=== PATIENT | male | born 1985 | race Two or more races ===

== ENCOUNTER 2023-03-07 20:51 | Outpatient (CLI) | payer MEDICAID, SELFPAY ==
--- OUTSIDE RECORDS SUMMARY | 2023-03-07 20:56 | XMS_ITS | Clinical Summary ---
Author Name Unknown Organization [facility] Address [address] [place] [id number] Care Team Providers Care Forensic Materials Engineer Name Role Phone Clinic - [facility] Ca re Provider Fannie Cash PA-C Unavailable [phone] Allergies No known active allergies Medications Medication Sig Dispensed Refills Start Date End Date Status albuterol (PROVENTIL) (2.5 MG/3ML) 0.083% neb solution Every 6 Hours as needed 0 Active albuterol (PROAIR HFA/PROVENTIL HFA/VENTOLIN HFA) 108 (90 Base) MCG/ACT inhaler Every 4 Hours as needed 0 Active acetaminophen (TYLENOL) 500 MG tablet Every 6 Hours as needed 0 Active ibuprofen (ADVIL/MOTRIN) 200 MG tablet Every 6 Hours as needed 0 Active Active Problems Problem Noted Date Diagnosed Date Mild intermittent asthma 01/26/2021 Resolved Problems Problem Noted Date Diagnosed Date Resolved Date COVID-19 01/26/2021 02/10/2021 Social History Tobacco Use Types Packs/Day Years Used Date Smoking Tobacco: Never Smokeless Tobacco: Never Alcohol Use Standard Drinks/Week Comments Yes 0 (1 standard drink = 0.6 oz pur e alcohol) socially PHQ-2 Answer Date Recorded PHQ-2 Score 0 01/26/2021 Adolescent Education Answer Date Record ed Getting School Help Needed Not on file 11/13 Sex and Gender Information Value Date Recorded Sex Assigned at Not on file Gender Identity Not on file Sexual Orientation Not on file Last Filed Vital Signs Vital Sign Reading Time Taken Comments Blood Pressure 106/64 02/10/2021 10:11 AM PEDIATRIC UROLOGIST Pulse 94 02/10/2021 10:11 AM PEDIATRIC UROLOGIST Temperature 36.9 ??C (98.4 ??F) 02/10/2021 10:[address] Respiratory Rate 18 02/10/2021 10:11 AM PEDIATRIC UROLOGIST Oxygen Saturation 96% 02/10/2021 10:11 AM PEDIATRIC UROLOGIST Inhaled Oxygen Concentration - - Weight 109.1 kg (240 lb 8 oz) 02/10/2021 10:11 A M PEDIATRIC UROLOGIST Height 177.8 cm (5' 10) 01/26/2021 5:22 PM PEDIATRIC UROLOGIST Body Mass Index 34.51 01/26/2021 5:22 PM PEDIATRIC UROLOGIST Plan of Treatment Health Maintenance Due Date Last Done Comments ADVANCE CARE PLANNING 1987 ANNUAL REVIEW OF HM ORDERS 1987 ASTHMA ACTION PLAN 1987 ASTHMA CONTROL TEST 1987 HEPATITIS B IMMUNIZATION (1 of 3 - 3-dose series) 1987 YEARLY PREVENTIVE VISIT 1987 COVID-19 Vaccine (#1) 03/28/1988 HIV SCREENING 09/25/2002 HEPATITIS C SCREENING 09/25/2005 DTAP/TDAP/TD IMMUNIZATION (1 - Tdap) 09/25/2012 LIPID 09/25/2022 INFLUENZA VACCINE (#1) 2022 PHQ-2 (once per calendar year) 2023 01/26/2021, 01/26/2021, 01/26/2021 HPV IMMUNIZATION Aged Out No longer e ligible based on patient's age to complete this topic IPV IMMUNIZATION Aged Out No longer e ligible based on patient's age to complete this topic MENINGITIS IMMUNIZATION Aged Out No l onger eligible based on patient's age to complete this topic Pneumococcal Vaccine: Pediatrics (0 to 5 Years) and At-Risk Patients (6 to 64 Years) Aged Out No longer eligible b ased on patient's age to complete this topic RSV MONOCLONAL ANTIBODY Aged Out No l onger eligible based on patient's age to complete this topic Care Teams Forensic Materials Engineer Relationship Specialty Start Date End Date Clinic - [facility] [address] [facility] [address] PCP - General 01/26/21 Fannie Cash PA-C [id number] [place], [place] [id number] Assigned PCP 02/15/21
--- OUTSIDE RECORDS SUMMARY | 2023-03-07 20:56 | XMS_ITS | Referral Summary ---
Author Name Unknown Organization [facility] Address [address] [place] [address] Care Team Providers Care Regulatory Leader Name Role Phone Clinic - [place] Ca re Provider Fannie Cash PA-C Unavailable [phone] Allergies No known active allergies Medications Medication [...] Comments Blood Pressure 106/64 02/10/2021 10:11 AM STEAM FITTER Pulse 94 02/10/2021 10:11 AM STEAM FITTER Temperature 36.9 ??C (98.4 ??F) 02/10/2021 10:[address] Respiratory Rate 18 02/10/2021 10:11 AM STEAM FITTER Oxygen Saturation 96% 02/10/2021 10:11 AM STEAM FITTER Inhaled Oxygen Concentration - - Weight 109.1 kg (240 lb 8 oz) 02/10/2021 10:11 A M STEAM FITTER Height 177.8 cm (5' 10) 01/26/2021 5:22 PM STEAM FITTER Body Mass Index 34.51 01/26/2021 5:22 PM STEAM FITTER Plan of Treatment Not on file Care Teams Regulatory Leader Relationship Specialty Start Date End Date Clinic - [facility] [address] [place] [address] PCP - General 01/26/21 Fannie Cash PA-C [id number] [place] [address] Assigned PCP 02/15/21
--- OUTSIDE RECORDS SUMMARY | 2023-03-07 20:56 | XMS_ITS | Encounter Summary ---
Author Name Unknown Organization [facility] Address [facility] [place] [address] Care Team Providers Care Hydrate Thickener Operator Name Role Phone Clinic - [facility] Primary Ca re Provider Fannie Cash PA-C Unavailable [phone] Reason for Visit * Reason Onset Date Comments Panel Management 08/25/2021 Encounter Details Date Type Department Care Team (Late st Contact Info) Description 08/25/2021 Telephone [facility] [address] [place] [phone] Fannie Cash PA-C [address] [place], [place] [id number] Panel Management Social History Tobacco Use Types Packs/Day Years Used Date Smoking Tobacco: Never Smokeless Tobacco: Never Alcohol Use Standard Drinks/Week Comments Yes 0 (1 standard drink = 0.6 oz pur e alcohol) socially PHQ-2 Answer Date Recorded PHQ-2 Score 0 01/26/2021 Sex and Gender Information Value Date Recorded Sex Assigned at Not on file Gender Identity Not on file Sexual Orientation Not on file documented as of this encounter Miscellaneous Notes * Telephone Encounter - Patriciagabriella LindaYOU lee - 02/04/2022 12:49 PM DIE STORAGE WORKER Patient Quality Outreach Patient is due for the following: Asthma - ACT needed and AAP Physical Preventive Adult Physical, - never done Topic Date Due ??? Hepatitis B Vaccine (1 of 3 - 3-dose series) Never done ??? COVID-19 Vaccine (1) Never done ??? Diptheria Tetanus Pertussis (DTAP/TDAP/TD) Vaccine (1 - Tdap) Never done ??? Flu Vaccine (1) Never done Next Steps: Schedule a office visit for asthma Adult Preventative Type of outreach: Sent letter. Next Steps: Reach out within 90 days via Letter. Max number of attempts reached: Yes. Will try again in 90 days if patient still on fail list. Questions for provider review: None Linda Lloyd MA STORAGE WORKER * Telephone Encounter - Linda Lloyd MA - 10/07/2021 4:41 PM CDT Patient Quality Outreach Patient is due for the following: Asthma - ACT needed and AAP Physical Preventive Adult Physical, - never done Topic Date Due ??? COVID-19 Vaccine (1) Never done ??? Diptheria Tetanus Pertussis (DTAP/TDAP/TD) Vaccine (1 - Tdap) Never done Next Steps: Schedule a office visit for asthma Adult Preventative Type of outreach: Sent letter. Next Steps: Reach out within 90 days via Letter. Max number of attempts reached: Yes. Will try again in 90 days if patient still on fail list. Questions for provider review: None Linda Lloyd MA * Telephone Encounter - Linda Lloyd MA - 08/25/2021 3:01 PM CDT Patient Quality Outreach Patient is due for the following: Asthma - ACT needed and AAP Physical - Due after never done Immunizations - Covid and Tdap NEXT STEPS: Schedule a office visit for asthma yearly physical Type of outreach: Sent letter. Questions for provider review: None Linda Lloyd MA documented in this encounter Plan of Treatment Not on file documented as of this encounter Visit Diagnoses Not on filedocumented in this encounter Additional Health Concerns Assessment Noted Time PHQ-9 Depression Total Score: 0 01/28/20 21 7:30 AM DIE STORAGE WORKER documented as of this encounter Care Teams Hydrate Thickener Operator Relationship Specialty Start Date End Date Clinic - [facility] [address] [place], [place] [id number] PCP - General 01/26/21 Fannie Cash PA-C [address] [place], [place] [id number] Assigned PCP 02/15/21 documented as of this encounter
--- NOTE | 2023-03-15 11:53 | W.PM.SLEEP ---
Sleep Study Details Details Interpreting Provider: Cj Date of Sleep Study: 03/07/23 Sleep Study Details: STUDY TYPE:? Hospital-based with CPAP titration ? BMI:? 35 ORDERING PROVIDER:Hitesh Corona INDICATION:? Concerns about sleep apnea ? SLEEP SUMMARY:? 370 minutes total sleep time RESPIRATORY SUMMARY:? Mean oxygen awake 97, asleep 96, minimum 85 2.3 minutes oxygen between 80 and 88% AHI 17.9, RDI 35 Supine AHI 70.3. No supine REM sleep was seen CPAP titration was performed decreasing AHI to 0 at a pressure of 9 in the nonsupine position and including 50 minutes of REM stage sleep PERIODIC LIMB MOVEMENTS OF SLEEP:? Pre treatment index 8.2, index with arousal 0 Post treatment index 12.5, index with arousal 0.3 CARDIAC:? Awake 68, asleep 64. No a arrhythmias noted IMPRESSION:? Moderate to severe obstructive sleep apnea with an overall AHI of 17.9 an RDI of 35. Successful CPAP titration in the nonsupine position at a pressure of 9 RECOMMENDATION: Initiate CPAP AutoSet pressure 6-17 with download in follow-up in 4 weeks.
== END 2023-03-07 20:52 | disposition home or self-care (01) ==
LOC: SLEEP 20:54
PROVIDERS: PCP Family Medicine; Visit Provider Otolaryngology
DX: G47.33 Obstructive sleep apnea (adult) (pediatric) (principal)
CPT/HCPCS: 95811